=== PATIENT | female | born 1985 | race Caucasian/White ===

== ENCOUNTER → 2022-12-28 12:56 | Outpatient (BNVA) | payer OTHER, SELFPAY | PROVIDERS: PCP Family Medicine; Visit Provider Family Medicine | DX: Z00.00 Encounter for general adult medical examination without abnormal findings (principal) | CPT/HCPCS: 80053; 84443; 85025 ==

== ENCOUNTER → 2024-10-17 12:00 | Outpatient (BNVA) | payer OTHER, SELFPAY | PROVIDERS: PCP Family Medicine; Visit Provider Nurse Practitioner Women's Health | DX: Z00.00 Encounter for general adult medical examination without abnormal findings (principal); Z01.419 Encounter for gynecological examination (general) (routine) without abnormal findings | CPT/HCPCS: 80053; 82306; 83036; 84443; 85025; 87624 ==

== ENCOUNTER → 2024-10-21 12:35 | Outpatient (BNVA) | payer OTHER, SELFPAY | PROVIDERS: PCP Family Medicine; Visit Provider Nurse Practitioner Women's Health | DX: R10.2 Pelvic and perineal pain (principal); N84.0 Polyp of corpus uteri | CPT/HCPCS: 76830 ==

== ENCOUNTER 2024-10-22 09:14 | Outpatient (CLI) | payer OTHER, SELFPAY ==
--- NOTE | 2024-10-22 09:20 | MM_ITS ---
WS: [id number] BILATERAL 3D TOMOSYNTHESIS DIGITAL SCREENING MAMMOGRAPHY WITH CAD CLINICAL INFORMATION: Z12.39 - Encounter for other screening for malignant neop... HISTORY: Screening mammogram. No current complaints. COMPARISON: None. TECHNIQUE: Bilateral CC and MLO views. FINDINGS: Bilateral breast implants appear intact. The breasts are composed of heterogeneous fibroglandular density tissue, which can limit the detection of small underlying mass lesions. No suspicious mass, asymmetry, calcifications, or architectural distortion. No evidence of malignancy. MM/MM [facility] tomosynthesis [id number] IMPRESSION: DENSITY: The breasts are heterogeneously dense, which may obscure small masses. BI-RADS: 2 - Benign FOLLOW UP: 1 Year Follow-up Recommend return to annual screening mammography.
== END 2024-10-22 09:15 | disposition home or self-care (01) ==
LOC: RAD 09:16
PROVIDERS: PCP Family Medicine; Visit Provider Nurse Practitioner Women's Health
DX: Z12.31 Encounter for screening mammogram for malignant neoplasm of breast (principal); R92.333 Mammographic heterogeneous density, bilateral breasts
CPT/HCPCS: 77063; 77067

== ENCOUNTER 2025-02-18 08:24 | Day surgery (SDC) | payer OTHER, SELFPAY ==
[2025-02-18] VITALS (10 sets, daily range): BP systolic 97–121; BP diastolic 49–77; PULSE 57–73; RESP 12–18; TEMP 36.4–36.7; O2SAT 97–100; BMI 24.3
--- NOTE | 2025-02-18 00:43 | W.PM.OPSFHP ---
Same Day Surgery H&P Indication for Procedure/HPI DATE OF PROCEDURE: February 18, 2025 CHIEF COMPLAINT/INDICATIONFOR SURGICAL PROCEDURE: abnormal uterine bleeding PREOP DIAGNOSIS: abnormal uterine bleeding PLANNED PROCEDURE: Operation Date: 02/18/25 10:35 Proposed Procedures p Hysteroscopy Hysteroscopy w/ Endometrial Sampling [id number], N92.1(Not Applicable) - Christopher Ramsey MD s Poylpectomy(Not Applicable) - Christopher Ramsey MD Medications/Allergies* Home Medications ?Medication ?Instructions ?Recorded ?Confirmed ?Type No Known Home Medications 10/17/24 02/17/25 History Allergies/Adverse Reactions Allergy/AdvReac Type Severity Reaction Status Date / Time No Known Allergies Allergy Verified 01/09/25 15:00 Pertinent History/Comorbid Conditions* Surgical History (Updated 01/16/23 @ 06:31 by Isabell Voss MD) History of skin graft Family History (Updated 10/17/24 @ 11:55 by Kristina Irizarry CMA) Hypertension Mother Denies family history of Colon cancer Ovarian cancer Diabetes CAD (coronary artery disease) Dementia Heart disease Hyperlipidemia Breast cancer Cancer Uterine cancer Thyroid disease Stroke Social History Smoking and tobacco/nicotine status: former use of tobacco/nicotine Alcohol intake: current Alcohol intake frequency: few times a week Substance/Drug Use: never Household members: spouse and children Marital status: Number of children: 3 Current occupational status: employed 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
--- NOTE | 2025-02-18 09:32 | ANES.PREANE2 ---
Pre-Anesthetic Assessment Height/Weight: Height 1.7 m Weight 70.307 kg Temp Pulse Resp BP Pulse Ox O2 Del Method 98.1 F 61 18 115/77 100 Room Air 02/18/25 08:51 02/18/25 08:51 02/18/25 08:51 02/18/25 08:51 02/18/25 08:51 02/18/25 08:53 Preop Diagnosis: abnormal uterine bleeding Operation Date: 02/18/25 10:35 Proposed Procedures p Hysteroscopy Hysteroscopy w/ Endometrial Sampling [id number], N92.1(Not Applicable) - Christopher Ramsey MD s Poylpectomy(Not Applicable) - Christopher Ramsey MD Familial anesthetic complications: PONV Was Beta Taylor taken within 24 hours: N/A Was Clonidine taken within 24 hours: N/A Last intake: Intake Last Liquid Date 02/17/25 Last Liquid Time 23:50 Last Solid Date 02/17/25 Last Solid Time 19:30 Social No alcohol and No tobacco Exam alert, oriented x 3, clear to auscultation bilaterally and regular rate & rhythm Airway Mallampati: Class I Dentition: full Anesthetic Plan ASA status: 1 Anesthesia: General Risk of > 500 ml blood loss (7ml/kg in children): No Medications/Allergies Home Medications ?Medication ?Instructions ?Recorded ?Confirmed ?Last Taken ?Type No Known Home Medications 10/17/24 02/17/25 Unknown History Allergies Allergy/AdvReac Type Severity Reaction Status Date / Time No Known Allergies Allergy Verified 01/09/25 15:00 Current Medications Generic Name Dose Route Start Last Admin Trade Name Freq PRN Reason Stop Dose Admin Sodium Chloride 1,000 mls @ 30 mls/hr 02/18/25 08:30 02/18/25 09:10 Sodium Chloride 0.9% IV 02/19/25 08:29 30 mls/hr .Q24H GRIFFIN Administration PFSH Anesthesia Surgical History History of skin graft Family History Mother Hypertension Denies family history of Colon cancer Ovarian cancer Diabetes CAD (coronary artery disease) Dementia Heart disease Hyperlipidemia Breast cancer Cancer Uterine cancer Thyroid disease Stroke Social History Smoking and tobacco/nicotine status: former use of tobacco/nicotine Alcohol intake: current Alcohol intake frequency: few times a week Substance/Drug Use: never Household members: spouse and children Marital status: Number of children: 3 Current occupational status: employed Current occupation: salvage yard esthetician/owner Leisure activites: other Leisure activities details: outdoor activities Sexually active: Yes Special renay needs: No Agree to transfusion: Yes Female Reproductive History Date of last menstrual period: 01/30/25
--- NOTE | 2025-02-18 09:37 | W.PM.OPSUD ---
Surgery/Procedure H&P Update DATE OF PROCEDURE: February 18, 2025 DATE H&P PERFORMED: 02/18/25 H&P UPDATE INFORMATION: I have reviewed H&P completed within last 30 days, I have examined patient prior to procedure and No changes to prior documentation PREOP DIAGNOSIS: abnormal uterine bleeding PLANNED PROCEDURE: Operation Date: 02/18/25 10:35 Proposed Procedures p Hysteroscopy Hysteroscopy w/ Endometrial Sampling [id number], N92.1(Not Applicable) - Christopher Ramsey MD s Poylpectomy(Not Applicable) - Christopher Ramsey MD
--- NOTE | 2025-02-18 11:40 | ANE.PACU2 ---
Inpatient post-anesthesia follow up: Airway intact: Yes Vital signs: Temperature 97.7 F Pulse Rate 59 Respiratory Rate 17 Blood Pressure 106/68 Pulse Oximetry 97 Oxygen Delivery Me thod Room Air Oxygen Flow Rate Fraction of Inspir ed Oxygen Hydration adequate: Yes Nausea and vomiting: No Pain level: 1 Mental status: Baseline
--- NOTE | 2025-02-18 12:05 | PM.OP ---
Operative Report Date of procedure: February 18, 2025 Pre-op diagnosis: abnormal uterine bleeding Post-op diagnosis: same Post-op findings: normal endometrial cavity No polyps / fibroids small amount of endometrial tissue Procedure done: hysteroscopy Curettage of uterus Implants: none Specimens removed/disposition: endometrial curettings Surgeon: Christopher Ramsey MD Anesthesia: MAC Estimated blood loss (mL): 0 Complications: none Findings: normal endometrial cavity No polyps / fibroids small amount of endometrial tissue Condition: stable Disposition: PACU Brief History: 39 y.o. with abnormal uterine bleeding Procedure: Informed consent signed. Patient was taken to the operating room. Anesthesia was induced. Patient was placed in dorsolithotomy position, prepped and draped for hysteroscopy. A bivalve speculum was placed in the vagina. The anterior lip of the cervix was grasped with a sharp-toothed tenaculum. The cervix was serially dilated with Hegar dilators. . A hysteroscope was placed into the endometrial cavity. The endometrial cavity was seen to be normal. There were no polyps or fibroids. There was a small amount of endometrial tissue. The hysteroscope was then removed. Endometrial curettage was done with a sharp curette. Endometrial tissue was sent to pathology. The sharp-toothed tenaculum was removed. There was no bleeding from the endometrial cavity or cervix. The patient was then placed supine and awakened and taken to the PACU. Postop condition: stable EBL: none Sponge and instruments counts were normal x 2 Complications: none
[2025-02-21 12:07] LABS: OR HCG Qualitative Urine Negative (Negative)
== END 2025-02-18 11:42 | disposition home or self-care (01) ==
PROVIDERS: Anesthesiology; PCP Family Medicine; Visit Provider Obstetrics & Gynecology
PROC: 0UJD8ZZ Inspection of Uterus and Cervix, Via Natural or Artificial Opening Endoscopic (ICD-10-PCS; CPT 58555; principal; 2025-02-18 10:25)
PROC: (CPT 58558; 2025-02-18 10:25)
DX: N93.9 Abnormal uterine and vaginal bleeding, unspecified (principal); Z87.891 Personal history of nicotine dependence
CPT/HCPCS: 58558; 81025; 88305; A4216; J1100; J1885; J2250; J2405; J2704; J3010; J7030; J9999